=== PATIENT | female | born 2000 | race Caucasian/White ===

== ENCOUNTER 2020-09-09 21:15 | Emergency (ER) | payer MEDICAID ==
--- NOTE | 2020-09-09 21:42 | EDM.PDOC ---
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 She did pass a couple of medium sized clots at home [employer]. She states she is having mild vaginal spotting on arrival to ED. Had about 1 1/2 days of mild vaginal spotting and bleeding about 10 days ago. She did have an elective this past June about 2 months ago. She does not remember if she had a regular menstrual period in July after that or not. she has a nuva-ring for control and also using condoms. Lower Pelvic Pain Score (Numeric/FACES): 6 Lower Back Pain Score (Numeric/FACES): 3 - Related Data Allergies Allergy/AdvReac Type Severity Reaction Status Date / Time amoxicillin Allergy Severe Rash Verified 09/09/20 21:32 gentamicin Allergy Severe Rash Verified 09/09/20 21:32 Penicillins Allergy Severe Other Verified 09/09/20 21:32 Home Meds: Home Meds . 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 - Past Surgical History GI Surgical History: Reports: Appendectomy Female Surgical History: Reports: Section Social & Family History - Tobacco Use Tobacco Use Status *Q: Former Tobacco User Used Tobacco, but Quit: Yes Month/Year Tobacco Last Used: 2 months - Caffeine Use Caffeine Use: Reports: Coffee, Energy Drinks, Soda, Tea - Recreational Drug Use Recreational Drug Use: No ED ROS GENERAL - Review of Systems Review Of Systems: See Below HEENT: Reports: No Symptoms Respiratory: Denies: Shortness of Breath, Cough Cardiovascular: Denies: Chest Pain GI/Abdominal: Reports: Abdominal Pain (lower mid pelvic). Denies: Nausea, Vomiting : Reports: Other (has passed 2 clots and small amt vaginal spotting bleeding on arrival to ED) Skin: Reports: No Symptoms Neurological: Reports: No Symptoms ED EXAM, RENAL/ - Physical Exam Exam: See Below General Appearance: Alert, Anxious, Mild Distress Head: Atraumatic Neck: Supple Respiratory/Chest: No Respiratory Distress, Lungs Clear, Normal Breath Sounds Cardiovascular: Regular Rate, Rhythm GI/Abdominal: Soft, Non-Tender (Female) Exam: Normal External Exam, Normal Speculum Exam, Other (trace blood on glove after exam, no visible blood or bleeding, cvx closed, no clots, minimal mid uterine tenderness, no adnexal mass or tenderness at time of exam, Nuva ring palpable upper vagnina wall). No: Vaginal Bleeding (ra), Vaginal Discharge Course - Vital Signs Last Recorded V/S: Last Vital Signs Temp 98.2 F 09/09/20 21:36 Pulse 114 H 09/09/20 21:36 Resp 20 09/09/20 21:36 BP 132/92 H 09/09/20 21:36 Pulse Ox 99 09/09/20 21:36 - Orders/Labs/Meds Orders: Active Orders 24 hr Category Date Time Status OB Transvaginal [US] Stat Exams 09/09/20 22:35 Taken PATIENT RETYPE [BBK] Routine Lab 09/09/20 23:19 Ordered Labs: Laboratory Tests 09/09/20 09/09/20 09/09/20 Range/Units 21:50 21:50 21:50 WBC 13.03 H (3.98-10.04) K/mm3 RBC 4.70 (3.98-5.22) M/mm3 Hgb 13.2 (11.2-15.7) gm/dl Hct 40.3 (34.1-44.9) % MCV 85.7 (79.4-94.8) fl MCH 28.1 (25.6-32.2) pg MCHC 32.8 (32.2-35.5) g/dl RDW Std Deviation 39.8 (36.4-46.3) fL Plt Count 349 (182-369) K/mm3 MPV 10.4 (9.4-12.3) fl Neut % (Auto) 61.9 (34.0-71.1) % Lymph % (Auto) 29.1 (19.3-51.7) % Cotton % (Auto) 7.6 (4.7-12.5) % Eos % (Auto) 1.0 (0.7-5.8) Baso % (Auto) 0.2 (0.1-1.2) % Neut # (Auto) 8.08 H (1.56-6.13) K/mm3 Lymph # (Auto) 3.79 H (1.18-3.74) K/mm3 Cotton # (Auto) 0.99 H (0.24-0.36) K/mm3 Eos # (Auto) 0.13 (0.04-0.36) K/mm3 Baso # (Auto) 0.02 (0.01-0.08) K/mm3 Manual Slide Review Normal smear HCG, Qual Positive H (NEGATIVE) HCG, Quant 29.0 mIU/mL Blood Type Gel Antibody Screen 09/09/20 Range/Units 21:50 WBC (3.98-10.04) K/mm3 RBC (3.98-5.22) M/mm3 Hgb (11.2-15.7) gm/dl Hct (34.1-44.9) % MCV (79.4-94.8) fl MCH (25.6-32.2) pg MCHC (32.2-35.5) g/dl RDW Std Deviation (36.4-46.3) fL Plt Count (182-369) K/mm3 MPV (9.4-12.3) fl Neut % (Auto) (34.0-71.1) % Lymph % (Auto) (19.3-51.7) % Cotton % (Auto) (4.7-12.5) % Eos % (Auto) (0.7-5.8) Baso % (Auto) (0.1-1.2) % Neut # (Auto) (1.56-6.13) K/mm3 Lymph # (Auto) (1.18-3.74) K/mm3 Cotton # (Auto) (0.24-0.36) K/mm3 Eos # (Auto) (0.04-0.36) K/mm3 Baso # (Auto) (0.01-0.08) K/mm3 Manual Slide Review HCG, Qual (NEGATIVE) HCG, Quant mIU/mL Blood Type O POSITIVE Gel Antibody Screen Negative - Re-Assessments/Exams Free Text/Narrative Re-Assessment/Exam: 09/10/20 02:19 Hcg positive, quant Hcg only 29, Pelvic US shows Ovoid sac compatable with gestational sac, Gest. age calculated to be 6 wks, 3 days based on measurement of sac. No pole, no cardiac activity observed. Heterogeneous complex area within the uterus, 1.5 by 2.3 cm, poorly marginated and demonstrating mixed echogenicity. Etiology unclear, consider retained products of conception. See Radiology report for further details. Pt resting comfortably at time of re exam prior to discharge. Pain completely resolved shortly after arrival to ED. No further clots or significant bleeding. 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 Strong return precautions given. Discharge instr. as documented. Departure - Departure Time of Disposition: 00:31 Disposition: Home, Self-Care 01 Condition: Fair Clinical Impression: Threatened , Pelvic pain - Discharge Information Instructions: Pelvic Pain, Female, Threatened Miscarriage, [id number] Referrals: PCP,Not In Area [Primary Care Provider] - Forms: ED Department Discharge Additional Instructions: Pelvic rest, no sexual activity recomended for now. See your OB provider early next week, first available appointment. Call tomorrow AM for appt. Return to our ED as needed if symptoms worsening in any way. We are sending with you the Radiology report of your US this evening and also a disc for your provider. Your test this evening was positive but your Hcg was very low at only 29. Sepsis Event Note (ED) - Evaluation Sepsis Screening Result: No Definite Risk - Focused Exam Vital Signs: Vital Signs Temp Pulse Resp BP Pulse Ox 09/09/20 21:36 98.2 F 114 H 20 132/92 H 99 - My Orders Last 24 Hours: My Active Orders 09/09/20 22:35 OB Transvaginal [US] Stat 09/09/20 23:19 PATIENT RETYPE [BBK] Routine - Assessment/Plan Last 24 Hours: My Active Orders 09/09/20 22:35 OB Transvaginal [US] Stat 09/09/20 23:19 PATIENT RETYPE [BBK] Routine
--- NOTE | 2020-09-10 09:02 | US ---
Pelvic ultrasound: Multiple real-time images were obtained transvaginally. Comparison: No previous pelvic imaging is available. Findings: Complicated abnormality is identified within the endometrial cavity. This finding measures approximately 1.5 x 2.3 x 2.2 cm and shows evidence of prominent vascular change. Small amount of fluid is seen within the pelvis believed to be physiologic. Right and left ovaries are within normal limits. Impression: 1. Complicated abnormality within the endometrial cavity showing increased vascular flow. This finding is most likely due to retained products of conception. Measurements as noted above. 2. Minimal fluid within the pelvis likely physiologic. 3. No adnexal abnormalities are appreciated. 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
== END 2020-09-10 00:55 | disposition home or self-care (01) ==
LOC: JD.ED 21:15
DX: O20.0 Threatened abortion (principal); Z87.891 Personal history of nicotine dependence; Z88.0 Allergy status to penicillin; Z88.1 Allergy status to other antibiotic agents; Z3A.01 Less than 8 weeks gestation of pregnancy
CPT/HCPCS: 36415; 76817; 76817-26; 84702; 84703; 85025; 86850; 86900; 86901; 99283; 99284-25